=== PATIENT | female | born 1945 | race Caucasian/White ===

== ENCOUNTER 2017-02-21 06:40 | Day surgery (SDC) | payer MEDICARE ==
[2017-02-21 07:13] VITALS: BMI 22.6
[2017-02-21] MEDS ORDERED: Lidocaine Hydrochloride 5 ML INJ ONE (08:05)
[2017-02-21] MEDS ORDERED: Propofol 10 mg/ml Inj (20 ML) ONE (08:05)
[2017-02-21] MEDS ORDERED: Lactated Ringer's 500 ML IV SCH (08:15)
[2017-02-21 08:33] VITALS: TEMP 97.1; O2SAT 100
[2017-02-21 09:21] VITALS: PULSE 61
[2017-02-21 09:24] VITALS: BP 141/69; RESP 16
== END 2017-02-21 09:20 | disposition home or self-care (01) ==
LOC: C.ENDO 06:40
PROVIDERS: ATTEND Internal Medicine Gastroenterology
DX: K29.50 Unspecified chronic gastritis without bleeding (principal); R63.4 Abnormal weight loss; B96.81 Helicobacter pylori [H. pylori] as the cause of diseases classified elsewhere
CPT/HCPCS: 43239; 88305; J2704; J7120

== ENCOUNTER 2017-05-17 11:40 | Emergency (ER) | payer MEDICARE, OTHER ==
[2017-05-17 11:40] VITALS: BMI 22.6
--- NOTE | 2017-05-17 12:16 | C.PDOC ---
History Of Present Illness 72 y/o female with Hx of HTN presents to ED with complaints of diarrhea and generalized weakness with associated lightheadedness for 5 days. Patient reports x4 episodes of diarrhea today and states she has decreased appetite. Patient was seen by PMD yesterday who told her she was dehydrated and advised she come to ED for further evaluation. Patient denies fever, chills, n/v, urinary symptoms, abdominal pain, back pain or any other complaints at this time. Time Seen by Provider: 05/17/17 11:56 Chief Complaint (Nursing): Abdominal Pain History Per: Patient History/Exam Limitations: no limitations Onset/Duration Of Symptoms: Days Current Symptoms Are (Timing): Still Present Past Medical History Reviewed: Historical Data, Nursing Documentation, Vital Signs Vital Signs: Last Vital Signs Temp 98.0 F 05/17/17 16:14 Pulse 61 05/17/17 16:14 Resp 20 05/17/17 16:14 BP 156/78 H 05/17/17 16:14 Pulse Ox 99 05/17/17 16:14 - Medical History PMH: Anemia, Anxiety, Arthritis, Asthma, Depression, Gastritis, HTN, Migraine, Pneumonia (MANY YEARS AGO) Surgical History: Endoscopy - [facility] Procedures COLONOSCOPY (06/09/15) ESOPHAGOGASTRODUODENOSCOPY [EGD] W/CLOSED BIOPSY (06/09/15) Family History: States: Unknown Family Hx - Social History Hx Tobacco Use: No Hx Alcohol Use: No Hx Substance Use: No - Immunization History Hx Tetanus Toxoid Vaccination: No Hx Influenza Vaccination: No Hx Pneumococcal Vaccination: Yes Review Of Systems Constitutional: Negative for: Fever, Chills Cardiovascular: Negative for: Chest Pain Gastrointestinal: Positive for: Diarrhea. Negative for: Nausea, Vomiting, Abdominal Pain Genitourinary: Negative for: Dysuria, Frequency Musculoskeletal: Negative for: Back Pain Skin: Negative for: Rash Neurological: Positive for: Weakness Physical Exam - Physical Exam Appears: Non-toxic, No Acute Distress Skin: Warm, Dry (Increased turgor ), No Rash Head: Atraumatic, Normacephalic Eye(s): bilateral: Normal Inspection Oral Mucosa: Moist Neck: Normal ROM, Supple Chest: Symmetrical Cardiovascular: Rhythm Regular, No Murmur Respiratory: Normal Breath Sounds, No Rales, No Rhonchi, No Wheezing Gastrointestinal/Abdominal: Bowel Sounds (Active), Soft, No Tenderness, No Guarding, No Rebound Extremity: Normal ROM, Capillary Refill (<2 seconds) Neurological/Psych: Oriented x3, Normal Speech, Normal Cognition Gait: Steady ED Course And Treatment - Laboratory Results Result Diagrams: 05/17/17 12:32 05/17/17 12:32 O2 Sat by Pulse Oximetry: 97 (RA) Pulse Ox Interpretation: Normal Medical Decision Making Medical Decision Making: Plan: * IV fluids [address] Crowley; pt's labs normal; will d/c after ivf and pt to f/u next week with Dr Crowley. Disposition Discussed With DrRena: Nirmal Crowley Doctor Will See Patient In The: Office Counseled Patient/Family Regarding: Diagnosis, Need For Followup - Disposition Referrals: Nirmal Crowley MD [Staff Provider] - Disposition: HOME/ ROUTINE Disposition Time: 16:03 Condition: STABLE Additional Instructions: Por favor, siga cynthia dieta BRAT-pltano, arroz, compota de manzana, t. Evite los alimentos ricos en fibra hunter unos steinberg. Seguir con el Dr. Crowley la pr xima semana. Si la diarrea persiste, recoja cynthia muestra y traiga a best mdico para best evaluacin. Sarika lquidos aumentados. Vuelva a la sammy de emergencias por cualquier sntoma peor. Instructions: Acute Diarrhea (ED) Forms: Gen Discharge Inst Trinidadian, [facility] (Trinidadian) Print Language: ESTONIAN - Clinical Impression Clinical Impression: Diarrhea - PA / LABEL REMOVER / Resident Statement MD/DO has reviewed & agrees with the documentation as recorded. - Scribe Statement The provider has reviewed the documentation as recorded by the Scribluci Chakraborty All medical record entries made by the Tristanibluci were at my direction and personally dictated by me. I have reviewed the chart and agree that the record accurately reflects my personal performance of the history, physical exam, medical decision making, and the department course for this patient. I have also personally directed, reviewed, and agree with the discharge instructions and disposition.
[2017-05-17] MEDS ORDERED: Sodium Chloride 0.9% 1,000 ML ONE (12:32)
[2017-05-17 12:36] LABS: BASO # 0.1 K/uL (0.0-0.2); BASO % 0.8 % (0.0-2.0); EOS # 0.2 K/uL (0.0-0.7); EOS % 3.4 % (0.0-4.0); HEMATOCRIT 34.8 % (34.0-47.0); LYMPH # 1.3 K/uL (1.0-4.3); LYMPH % 18.8 % (20.0-40.0); MEAN CORPUSCULAR HEMOGLOBIN 26.4 pg (27.0-31.0); MEAN CORPUSCULAR HGB CONC 32.6 g/dL (33.0-37.0); MEAN PLATELET VOLUME 9.1 fL (7.2-11.7); MONO # 0.5 K/uL (0.0-0.8); MONO % 7.9 % (0.0-10.0); NRBC % 0.1 % (0.0-2.0); RED CELL DISTRIBUTION WIDTH 13.2 % (11.5-14.5); WHITE BLOOD COUNT 6.8 K/uL (4.8-10.8)
[2017-05-17] MEDS: Sodium Chloride 0.9% 1,000 ML IV ONE ×2 (12:42→16:39)
[2017-05-17 12:46] VITALS: PULSE 61
[2017-05-17 12:46] LABS: CHLORIDE 106 mmol/L (98-107); SODIUM 145 mmol/L (132-148)
[2017-05-17 12:48] LABS: ALB/GLOB RATIO 1.3 (1.0-2.1); AST/SGOT 24 U/L (14-36); BILIRUBIN,TOTAL 0.7 mg/dL (0.2-1.3); CARBON DIOXIDE 28 mmol/L (22-30); GFR AFRICAN-AMERICAN > 60; TOTAL PROTEIN 7.6 g/dL (6.3-8.3)
[2017-05-17 12:49] LABS: ALKALINE PHOSPHATASE 63 U/L (38-126); ALT/SGPT 21 U/L (9-52); BLOOD UREA NITROGEN 11 mg/dL (7-17); CALCIUM 9.5 mg/dl (8.6-10.4); GLUCOSE,RANDOM 88 mg/dL (65-105); MAGNESIUM 2.1 mg/dL (1.6-2.3)
[2017-05-17] MEDS: Sodium Chloride 0.9% 500 ML IV SCH ×6 (13:30→16:43)
[2017-05-17 16:15] VITALS: BP 156/78; RESP 20; TEMP 98
[2017-05-18 17:40] VITALS: O2SAT 97
== END 2017-05-17 16:40 | disposition home or self-care (01) ==
LOC: C.ER 11:40
DX: R19.7 Diarrhea, unspecified (principal); I10 Essential (primary) hypertension; D64.9 Anemia, unspecified
CPT/HCPCS: 80053; 83735; 85025; 99284; J7040

== ENCOUNTER 2017-11-01 12:25 | Emergency (ER) | payer MEDICARE, OTHER ==
[2017-11-01 12:37] VITALS: BMI 22.3
[2017-11-01 12:52] VITALS: BP 139/85; PULSE 65; TEMP 98.2; O2SAT 99
--- NOTE | 2017-11-01 13:33 | C.PDOC ---
History Of Present Illness 72 y/o F c PMHx HTN p/w back pain x 3 days. Pain is Left lower back, nonradiating, constant, moderate in severity. Denies fever, chills, dysuria, vomiting, rash, injury. Time Seen by Provider: 11/01/17 13:03 Chief Complaint (Nursing): Female Genitourinary Past Medical History Vital Signs: Last Vital Signs Temp 98.2 F 11/01/17 12:42 Pulse 65 11/01/17 12:42 Resp 17 11/01/17 12:42 BP 139/85 11/01/17 12:42 Pulse Ox 99 11/01/17 13:33 - Medical History PMH: Anemia, Anxiety, Arthritis, Asthma, Depression, Gastritis, HTN, Migraine, Pneumonia (MANY YEARS AGO) Denies: Atrial Fibrillation, CHF, COPD, Hypercholesterolemia, Chronic Kidney Disease, Seizures Surgical History: Endoscopy Denies: CABG, Pacemaker - [facility] Procedures COLONOSCOPY (06/09/15) ESOPHAGOGASTRODUODENOSCOPY [EGD] W/CLOSED BIOPSY (06/09/15) Family History: States: Unknown Family Hx - Social History Hx Tobacco Use: No Hx Alcohol Use: No Hx Substance Use: No - Immunization History Hx Tetanus Toxoid Vaccination: No Hx Influenza Vaccination: No Hx Pneumococcal Vaccination: Yes Review Of Systems Except As Marked, All Systems Reviewed And Found Negative. Constitutional: Negative for: Fever Cardiovascular: Negative for: Chest Pain Physical Exam - Physical Exam Additional Physical Exam Comments: Gen: NAD Head: NC/AT Eyes: PERRL ENT: MMM Neck: No midline tenderness. CV: Regular rate. Pulses 2+ bilaterally Lungs: CTA b/l Back: No midline tenderness. No CVA tenderness. No swelling or deformity. Extremities: No swelling or tenderness. Negative straight leg raise. Skin: No rash. Neuro: Alert, no focal deficit. ED Course And Treatment O2 Sat by Pulse Oximetry: 99 Medical Decision Making Medical Decision Making: UA shows leuks and few WBCs, no RBCs or blood. Patient in no distress and vitals normal. Will treat with antibiotics and NSAIDs with pepcid, f/u PMD, instructed to return to ED for worsening pain, fever, vomiting, rash, dyspnea, or any other problem. Disposition - Disposition Referrals: Nirmal Crowley MD [Staff Provider] - Disposition: HOME/ ROUTINE Disposition Time: 14:09 Condition: STABLE Prescriptions: Ciprofloxacin [Cipro] 500 mg PO BID #14 tab Famotidine [Pepcid] 1 tab PO BID #14 tab Ibuprofen [Motrin] 1 tab PO Q6 #30 tab Instructions: Urinary Tract Infection, Adult (DC) Forms: [employer] (Tajik) - Clinical Impression Clinical Impression: UTI (urinary tract infection)
[2017-11-01 13:55] LABS: SQUAMOUS EPITHIAL 5 /hpf (0-5); URINE BACTERIA RARE (<OCC); URINE BILIRUBIN NEGATIVE (NEGATIVE); URINE BLOOD NEGATIVE (NEGATIVE); URINE CLARITY Hazy (Clear); URINE COLOR Straw (YELLOW); URINE GLUCOSE (UA) NORMAL (Normal); URINE LEUKOCYTE ESTERASE 3+ Leu/uL (Negative); URINE NITRATE NEGATIVE (NEGATIVE); URINE PROTEIN NEGATIVE (NEGATIVE); URINE UROBILINOGEN NORMAL mg/dL (0.2-1.0)
[2017-11-01 14:16] VITALS: RESP 20
== END 2017-11-01 14:15 | disposition home or self-care (01) ==
LOC: C.ER 12:25
DX: N39.0 Urinary tract infection, site not specified (principal)
CPT/HCPCS: 81001; 87086; 96372; 99284; J1885

== ENCOUNTER 2017-11-30 15:01 | Emergency (ER) | payer MEDICARE, OTHER ==
[2017-11-30 15:01] VITALS: BMI 22.3
[2017-11-30 15:10] VITALS: BP 146/83; PULSE 62; RESP 20; TEMP 99.1; O2SAT 96
--- NOTE | 2017-11-30 15:41 | C.PDOC ---
History Of Present Illness Pt c/o generalized itching. Time Seen by Provider: 11/30/17 15:23 Chief Complaint (Nursing): Abnormal Skin Integrity History Per: Patient Onset/Duration Of Symptoms: Days (3) Current Symptoms Are (Timing): Still Present Possible Cause: Unknown Associated Symptoms: Itching. denies: Swelling, Trouble Swallowing Home/EMS Treatment: Benadryl Severity: Moderate Additional History Per: Prior Records Past Medical History Reviewed: Historical Data, Nursing Documentation, Vital Signs Vital Signs: Last Vital Signs Temp 99.1 F 11/30/17 15:09 Pulse 62 11/30/17 15:09 Resp 20 11/30/17 15:09 BP 146/83 11/30/17 15:09 Pulse Ox 96 11/30/17 15:09 - Medical History PMH: Anemia, Anxiety, Arthritis, Asthma, Depression, Gastritis, HTN, Migraine, Pneumonia (MANY YEARS AGO) Surgical History: Endoscopy - [facility] Procedures COLONOSCOPY (06/09/15) ESOPHAGOGASTRODUODENOSCOPY [EGD] W/CLOSED BIOPSY (06/09/15) Family History: States: Unknown Family Hx - Social History Hx Tobacco Use: No Hx Alcohol Use: No Hx Substance Use: No - Immunization History Hx Tetanus Toxoid Vaccination: No Hx Influenza Vaccination: No Hx Pneumococcal Vaccination: Yes Review Of Systems Except As Marked, All Systems Reviewed And Found Negative. Constitutional: Negative for: Fever, Weakness ENT: Negative for: Mouth Pain, Mouth Swelling, Throat Pain, Throat Swelling Respiratory: Negative for: Shortness of Breath Gastrointestinal: Negative for: Vomiting, Abdominal Pain Musculoskeletal: Negative for: Neck Pain Skin: Negative for: Rash Neurological: Negative for: Weakness, Numbness Physical Exam - Physical Exam Appears: Non-toxic, No Acute Distress Skin: Normal Color, Warm, Dry, No Rash, Other (Dry skin) Head: Atraumatic, Normacephalic Eye(s): bilateral: Normal Inspection, PERRL, EOMI Oral Mucosa: Moist, No Drooling, No Trismus Lips: Normal Appearing Throat: Normal Neck: Normal ROM, Supple Lymphatic: No Adenopathy Cardiovascular: Rhythm Regular Respiratory: Normal Breath Sounds, No Accessory Muscle Use Gastrointestinal/Abdominal: Soft, No Tenderness Extremity: Normal ROM, No Pedal Edema, No Calf Tenderness Neurological/Psych: Oriented x3, Normal Speech, Normal Motor, Normal Sensation ED Course And Treatment O2 Sat by Pulse Oximetry: 96 Pulse Ox Interpretation: Normal Disposition Counseled Patient/Family Regarding: Diagnosis, Need For Followup, Rx Given - Disposition Referrals: Niraml Crowley MD [Staff Provider] - Disposition: HOME/ ROUTINE Disposition Time: 15:42 Condition: STABLE Additional Instructions: Follow up with your doctor. Use skin moisturizer. Return to the ER if you develop rash, throat swelling, shortness of breath, worsening of symptoms or if you have an other concerns. Prescriptions: Methylprednisolone [Medrol] 1 dose PO DAILY #1 packet Instructions: Itchy Skin Forms: [employer] (Uruguayan) Print Language: SERBIAN - Clinical Impression Clinical Impression: Pruritus
== END 2017-11-30 15:54 | disposition home or self-care (01) ==
LOC: C.ER 15:01
DX: L29.9 Pruritus, unspecified (principal)